=== PATIENT | female | born 1975 | race Caucasian/White ===

== ENCOUNTER 2017-07-20 07:53 | Day surgery (SDC) | payer OTHER ==
[~2017-07-20] VITALS: Ht 172.7 cm; Wt 74.8 kg
[2017-07-20 08:21] LABS: HEMATOCRIT 35.9 % (36.0-46.0); HEMOGLOBIN 12.4 G/DL (11.9-15.5); MCH 30.4 PG (29.0-34.0); MCHC 34.5 G/DL (30.0-36.0); PLATELET COUNT 183 K/uL (156-360); RBC DIS.WIDTH-CV 12.4 % (11.8-14.6); RBC DIS.WIDTH-SD 39.6 % (39-53); RED BLOOD COUNT 4.08 M/uL (3.80-5.20); WHITE BLOOD COUNT 6.8 K/uL (4.1-10.2)
[2017-07-20 08:32] LABS: ALBUMIN 4.3 g/dL (3.2-4.8)
[2017-07-20 08:33] LABS: CHLORIDE 105 mEq/L (99-109); POTASSIUM 3.8 mEq/L (3.7-5.4); SODIUM 140 mEq/L (136-147)
[2017-07-20 08:35] LABS: GLUCOSE 120 mg/dL (70-99); TOTAL PROTEIN 7.1 g/dL (6.4-8.3)
[2017-07-20 08:37] LABS: TOTAL BILIRUBIN 1.1 mg/dL (0.0-1.0)
[2017-07-20 08:38] LABS: ALKALINE PHOSPHATASE 71 IU/L (3-129)
[2017-07-20 08:39] LABS: CREATININE 0.8 mg/dL (0.6-1.3); GFR ESTIMATE (CALCULATED) > 59 mL/min/
[2017-07-20 08:40] LABS: AST (GOT) 17 IU/L (2-34); UREA NITROGEN (BUN) 12 mg/dL (9-23)
[2017-07-20 08:41] LABS: ALT (GPT) 25 IU/L (3-49)
[2017-07-20 08:47] LABS: QUANTITATIVE HCG < 4.0 MIU/ML
[2017-07-20 08:52] LABS: APPEARANCE CLOUDY ((CLEAR)); BILIRUBIN NEGATIVE; BLOOD MODERATE; COLOR AMBER ((YELLOW)); GLUCOSE (STRIP) NEGATIVE; KETONES NEGATIVE; LEUKOCYTES LARGE; NITRITE NEGATIVE; PROTEIN (STRIP) 30; SPECIFIC GRAVITY 1.027 (1.000-1.030); UROBILINOGEN 0.2 MG/DL (0.2-1.0)
[2017-07-20 09:09] LABS: BACTERIA 2+ /HPF; EPITHELIAL CELLS 2+ /HPF; MUCUS NONE SEEN /LPF; WHITE BLOOD CELLS TNTC /HPF (0-5)
[2017-07-20 13:40] VITALS: BP 104/59
[2017-07-20 15:40] VITALS: BP 104/59
[2017-07-20 19:03] VITALS: BP 103/58
[2017-07-21 00:39] VITALS: BP 91/57
[2017-07-21 04:24] VITALS: BP 93/57
[2017-07-21 07:56] VITALS: BP 108/62
[2017-07-21] MEDS ORDERED: COLACE100 MG PO (10:46)
[2017-07-21] MEDS ORDERED: ENDOCET 5-3251 EACH PO (10:46)
[2017-07-21 11:25] VITALS: BP 104/68
== END 2017-07-21 15:17 | disposition home or self-care (01) ==
LOC: EME 07:53 → SDC 11:30 → EME 11:30 → ENRESERV 13:27 → 2EAST 13:28 → 2SOUTH 13:28 → ENRESERV 14:35 → 2EAST 15:51
PROVIDERS: Nurse Practitioner Family
PROC: 0DTJ4ZZ Resection of Appendix, Percutaneous Endoscopic Approach (ICD-10-PCS; principal; 2017-07-20)
DX: K35.80 Unspecified acute appendicitis (principal); N39.0 Urinary tract infection, site not specified; Z88.0 Allergy status to penicillin
CPT/HCPCS: 74177; 80053; 81003; 84702; 85027; 88304; 93005; 99281; 99285; G0378; J0131; J0330; J1100; J1885; J2001; J2250; J2405; J2710; J3010; J7030; J7120; S0074